=== PATIENT | male | born 1960 | race Asian ===

== ENCOUNTER 2016-07-01 10:13 | Emergency (ER) | payer OTHER ==
[2016-07-01 10:21] VITALS: BP 122/82; PULSE 82; TEMP 97.7; BMI 26.4
[2016-07-01] MEDS ORDERED: CYCLOBENZAPRINE HCL 10 MG TABLET (FP) ONE (11:04)
[2016-07-01] MEDS ORDERED: IBUPROFEN 600 MG TABLET (FP) PO ONE ×2 (11:04→11:06)
[2016-07-01] MEDS ORDERED: CYCLOBENZAPRINE HCL 10 MG TABLET (FP) PO ONE (11:06)
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
== END 2016-07-01 11:44 | disposition home or self-care (01) ==
LOC: JERFT 10:13
DX: S13.4XXA Sprain of ligaments of cervical spine, initial encounter (principal); V43.52XA Car driver injured in collision with other type car in traffic accident, initial encounter; Y92.414 Local residential or business street as the place of occurrence of the external cause; Y93.89 Activity, other specified; Y99.8 Other external cause status
CPT/HCPCS: 99281-25